=== PATIENT | female | born 1995 | race Caucasian/White ===

== ENCOUNTER 2019-05-18 13:40 | Emergency (ER) | payer OTHER, MEDICAID ==
[2019-05-18 14:19] VITALS: BP 106/67
[2019-05-18 14:49] LABS: Influenza B Molecular POSITIVE (Negative)
--- NOTE | 2019-05-18 15:29 | UC ---
FLU HPI - HPI Summary HPI Summary: 3 DAYS OF COUGH, FATIGUE, ACHINESS AND CHILLS. DENIES ANY DOCUMENTED FEVER. NO NAUSEA, HEADACHE, SORE THROAT OR EAR PAIN. STATES SHE IS ACTUALLY FEELING A LITTLE BIT BETTER TODAY BUT IS MOSTLY CONCERNED ABOUT THE COUGH. 30 WEEKS . NO FLU SHOT. FOLLOWS WITH [facility]. - History of Current Complaint Chief Complaint: UCGeneralIllness Stated Complaint: RESP COMPLAINT Time Seen by Provider: 05/18/19 14:53 Hx Obtained From: Patient, Family/Deputy [employer] Handler - MOM Hx Last Menstrual Period: 02/12/16 Onset/Duration: Gradual Onset, Lasting Days, Still Present Severity Currently: Mild Severity Initially: Mild Pain Intensity: 0 Pain Scale Used: 0-10 Numeric Associated Signs & Symptoms: Positive: Myalgia, Cough - Allergy/Home Medications Allergies/Adverse Reactions: Allergies Allergy/AdvReac Type Severity Reaction Status Date / Time No Known Allergies Allergy Unverified 05/18/19 14:14 Home Medications: Home Medications NK [No Home Medications Reported] 05/18/19 [History Confirmed 05/18/19] PMH/Surg Hx/FS Hx/Imm Hx Previously Healthy: Yes - Surgical History Surgical History: None - Family History Known Family History: Positive: Other - appendicitis Negative: Cardiac Disease, Hypertension, Diabetes - Social History Alcohol Use: None Substance Use Type: None Smoking Status (MU): Never Smoked Tobacco - Immunization History Vaccination Up to Date: Yes Review of Systems All Other Systems Reviewed And Are Negative: Yes Constitutional: Positive: Chills, Fatigue Respiratory: Positive: Cough Cardiovascular: Positive: Negative Gastrointestinal: Positive: Negative Musculoskeletal: Positive: Myalgia Physical Exam Triage Information Reviewed: Yes Appearance: Well-Appearing, No Pain Distress, Well-Nourished Vital Signs: Initial Vital Signs Temp 98.2 F 05/18/19 14:15 Pulse 106 05/18/19 14:15 Resp 16 05/18/19 14:15 BP 106/67 05/18/19 14:15 Pulse Ox 100 05/18/19 14:15 Laboratory Tests 05/18/19 05/18/19 14:42 14:45 Influenza B (Rapid) Positive A Group A Strep Rapid Negative Vital Signs Reviewed: Yes Eyes: Positive: Conjunctiva Clear ENT: Positive: Hearing grossly normal, Pharynx normal, TMs normal Neck: Positive: Supple, Nontender, No Lymphadenopathy Respiratory Exam: Normal Cardiovascular Exam: Normal Abdomen Description: Positive: Soft Musculoskeletal: Positive: No Edema Neurological: Positive: Alert Psychological: Positive: Age Appropriate Behavior Skin: Negative: Rashes Flu Course/Dx - Course Course Of Treatment: SWAB POSITIVE FOR INFLUENZA B. PATIENT IS 28 WEEKS AND HAS A ROUTINE OB FOLLOW-UP APPOINTMENT IN 2 DAYS. ADVISED HER TO KEEP THIS APPOINTMENT. TYLENOL NEEDED FOR DISCOMFORT. REST, HYDRATE. PATIENT DECLINES TAMIFLU TODAY STATING SHE IS ACTUALLY FEELING A LITTLE BETTER. WAS JUST CONCERNED ABOUT THE PERSISTENT COUGH. - Differential Dx/Diagnosis Provider Diagnosis: Influenza B Discharge ED - Sign-Out/Discharge Documenting (check all that apply): Patient Departure All imaging exams completed and their final reports reviewed: No Studies - Discharge Plan Condition: Stable Disposition: HOME Patient Education Materials: Influenza (ED) Forms: *Work Release Referrals: [facility] [Outside] - If Needed Additional Instructions: SWAB POSITIVE FOR INFLUENZA B. TYLENOL NEEDED FOR DISCOMFORT. STAY WELL HYDRATED AND RESTED. SEEK FOLLOW-UP IF YOU ARE NOT IMPROVING EXPECTED. KEEP YOUR OB APPT IN 2 DAYS. CALL THE NUMBER BELOW FOR ASSISTANCE IN ESTABLISHING WITH A PCP An additional resource available to assist in finding the appropriate physician for your health care needs is the [facility] ([facility]). You may contact them by calling [phone]. - Billing Disposition and Condition Condition: STABLE Disposition: Home
== END 2019-05-18 15:30 | disposition home or self-care (01) ==
LOC: UCEAST 13:40
DX: O99.89 Other specified diseases and conditions complicating pregnancy, childbirth and the puerperium (principal); J10.1 Influenza due to other identified influenza virus with other respiratory manifestations; Z3A.28 28 weeks gestation of pregnancy
CPT/HCPCS: 87651; 99211; G0463

== ENCOUNTER 2019-08-04 08:01 | Inpatient (IN) | payer OTHER, MEDICAID ==
[2019-08-04] MEDS ORDERED: Buffered Lidocaine 1% SYRIN* 1 ML/SYRINGE INTRADERM ONE (08:10)
[2019-08-04] MEDS ORDERED: Lactated Ringers 1000 ML Bag* 1,000 ML IV ONE ×2 (08:10→13:33)
[2019-08-04] MEDS ORDERED: Lactated Ringers 1000 ML Bag* 1,000 ML IV SCH ×3 (09:00→16:00)
--- NOTE | 2019-08-04 09:23 | HP ---
General Information - Reason for Visit elective IOL at 39w4d - General Information Maternal Age: 23 Grav: 2 Para: 1 SAB: 0 IEA: 0 Estimated Due Date: 08/07/19 Determined By: Early Ultrasound Gestational Age in Weeks/Days: 39w4d Maternal Blood Type and Rh: O Positive - Results this Serology/RPR Result: Non-Reactive Rubella Result: Immune HBsAg Result: Negative HIV Result: Negative GBS Culture Result: Negative Past Medical History Delivery History: Hx Uncomplicated Vaginal Delivery, See Records Pertinent Past Medical History: Non-Contributory Pertinent Past Surgical History: None Pertinent Family History: Non-Contributory - Antepartal Records Antepartal Records: Reviewed, Uncomplicated - UDS+ for THC Review of Systems Constitutional: Comfortable CV Complaint: No Respiratory: Shortness of Breath: No Gastrointestinal: No Nausea/Vomiting, Normal Bowel Movement Genitourinary: No Dysuria, No Bleeding, No Leaking Fluid Musculoskeletal: No Complaint, No Epigastric Pain Neurological: No Headache, No Visual Changes Movement: Normal Exam Allergies/Adverse Reactions: Allergies No Known Allergies Allergy (Unverified 05/18/19 14:14) T 98.1 P 104 RR 20 BP 124/79 O2 Sat 100% - Measurements Height: 5 ft 4.5 in Weight: 179 lb 0.035 oz Weight in lbs: 179.033308 Body Mass Index (BMI): 30.2 Pre- Weight: 159 lb Weight Gained This : 20.002 lbs and 0.003 ozs - Exam Breast: Breast Exam Deferred CVA: No CVA Tenderness Extremities: No Edema Heart: Normal Rhythm/Heart Sounds HEENT: No Significant Findings Lungs: Clear Bilaterally Rectal: Rectal Exam Deferred Reflexes: DTR 2+ Thyroid: No Thyromegaly - Abdominal Exam Abdomen Exam: Non-Tender, Fundal Height Consistent with Dates - Ultrasound/Biophysical Profile Ultrasound Status: Bedside Exam Ultrasound Findings: Vertex, grossly normal JOSE ANGEL Targeted Exam Findings Estimated Weight: 7#4oz Cervical Exam: 4cm Effacement: 70% Station: -2 Presenting Part: Vertex Membrane Status: Intact Bleeding/Discharge: None EFM Findings - External Monitor Findings Baseline Heart Rate: 135 External Monitor Findings: Accelerations Present, No Pattern of Variable or Late Decelerations, Variability Moderate, Baseline Stable External Monitor Findings Comment: Reactive Contractions: Irregular, Mild, < 45 Seconds Assessment/Plan - Assessment 23 y/o at 39w4d with favorable cervical exam, here for elective IOL RH+ Rubella Immune GBS negative - Plan Plan: Induction Plan Comment: Cervix is 4cm/70%/-2, soft, mid position - favorable for IOL Pitocin, AROM when/if appropriate and safe - Date/Time of Admission Date of Admission: 08/04/19 Time of Admission: 08:00
[2019-08-04 09:56] LABS: Hematocrit 32 % (35-47); Hemoglobin 10.6 g/dL (12.0-16.0); Mean Corpuscular HGB Conc 33 g/dL (31-36); Mean Corpuscular Hemoglobin 24 pg (27-31); Mean Corpuscular Volume 73 fL (80-97); Mean Platelet Volume 8.1 fL (7.4-10.4); Platelet Count 349 10^3/uL (150-450); Red Blood Count 4.41 10^6 /uL (3.70-4.87); Red Cell Distribution Width 15 % (10-15); White Blood Count 11.5 10^3/uL (3.5-10.8)
[2019-08-04] MEDS ORDERED: Oxytocin in LR* 20 UNITS/1,000 ML BAG IVPB SCH (10:00)
[2019-08-04 10:28] LABS: Urine Benzodiazepine Screen None Detected (None Detect); Urine Opiates Screen None Detected (None Detect)
--- NOTE | 2019-08-04 10:44 | PN ---
Progress Note - Progress Note Date of Service: 08/04/19 Note: Pitocin is at 8mU. Contractions are increasing in frequency/intensity. Continue to titrate Pit per protocol. Anticipate vaginal delivery. DO ALEXEY Tellez
[2019-08-04 10:56] LABS: ABS Basophils 0.1 10^3/ul (0-0.2); ABS Eosinophils 0.1 10^3/ul (0-0.6); ABS Lymphocytes 2.6 10^3/ul (1.0-4.8); ABS Monocytes 0.7 10^3/ul (0-0.8); ABS Neutrophils 8.1 10^3/ul (1.5-7.7); Lymphocyte % 22.1 %; Microcytosis 2+
[2019-08-04] MEDS ORDERED: OBEPIDURAL* 250 ML EPIDURAL ONE (12:44)
[2019-08-04] MEDS ORDERED: Lactated Ringers 1000 ML Bag* 500 ML IV PRN ×2 (13:33)
[2019-08-04] MEDS ORDERED: Phenylephrine 40 MCG/ML SYRINGE IV PUSH PRN ×2 (13:33)
[2019-08-04] MEDS ORDERED: Famotidine TAB* 20 MG PO PRN (13:33)
[2019-08-04] MEDS ORDERED: Sodium Citrate/Citric Acid* 15 ML UDC PO PRN (13:33)
[2019-08-04] MEDS ORDERED: OBEPIDURAL* 250 ML EPIDURAL SCH (14:00)
[2019-08-04] MEDS ORDERED: Witch Hazel PAD* JAR ONE (14:31)
[2019-08-04] MEDS ORDERED: Dibucaine 1% 28.35 GM TUBE ONE (14:31)
--- NOTE | 2019-08-04 15:24 | PROCNOTE ---
[facility] OB: Delivery Note - Delivery A Date of : 08/04/19 Time of : 14:12 [place] Weight at : 7 lb 5 oz Score 1 Minute: 9 Score 5 Minutes: 10 Gestational Age in Weeks and Days at Delivery: 39 Weeks and 4 Days Delivery Method: Spontaneous Vaginal Labor: Induced Did Patient attempt ?: N/A, No Previous Amniotic Fluid: Clear Estimated Blood Loss: 250 Anesthesia/Analgesia: CEI for Labor Delivered By: John Thomas JR - Nursery Level of Nursery: Regular/Bedside - Perineum Perineal Injury: Periurethral Laceration Perineal Repair: By Delivering Practioner - Periurethral laceration repaired with 4-0 Vicryl rapide interrupted x 3 - Events Delivery Events of Note: Pitocin During Labor, Pitocin Only After Delivery - Additional Delivery Notes Additional Delivery Notes: Uncomplicated vaginal delivery at term. Delivered through loose body cord. Cord clamped and cut at ~ 5 minutes. Placenta delivered spontaneously and intact with 3VC. Good uterine tone. Periurethral tear extending towards the clitoral pierce repaired with 4-0 Vicryl rapide interrupted sutures x 3. Mother and doing well at time of this note. DO ALEXEY Tellez
[2019-08-04] MEDS ORDERED: Glycerin ADULT SUPP PR PRN (15:25)
[2019-08-04] MEDS ORDERED: Dibucaine 1% 28.35 GM TUBE PR PRN (15:25)
[2019-08-04] MEDS ORDERED: Simethicone TAB* 80 MG TAB.CHEW PO SCH (17:30)
[2019-08-04] MEDS: Ibuprofen TAB* 600 MG PO PRN (18:11)
[2019-08-04] MEDS: Witch Hazel PAD* JAR TOPICAL PRN (18:15)
[2019-08-04] MEDS: Docusate CAP* 100 MG PO SCH (19:52)
[2019-08-05] MEDS: Ibuprofen TAB* 600 MG PO PRN ×4 (00:26→21:58)
[2019-08-05] MEDS: Acetaminophen TAB* 325 MG PO PRN ×4 (05:27→19:58)
[2019-08-05 06:50] LABS: ABS Basophils 0.1 10^3/ul (0-0.2); ABS Eosinophils 0.1 10^3/ul (0-0.6); ABS Lymphocytes 3.9 10^3/ul (1.0-4.8); ABS Monocytes 1.1 10^3/ul (0-0.8); ABS Neutrophils 10.7 10^3/ul (1.5-7.7); Eosinophil % 0.7 %; Hematocrit 28 % (35-47); Hemoglobin 9.3 g/dL (12.0-16.0); Lymphocyte % 24.3 %; Mean Corpuscular HGB Conc 33 g/dL (31-36); Mean Corpuscular Hemoglobin 24 pg (27-31); Mean Corpuscular Volume 74 fL (80-97); Platelet Count 295 10^3/uL (150-450); Red Blood Count 3.83 10^6 /uL (3.70-4.87); Red Cell Distribution Width 15 % (10-15); White Blood Count 15.9 10^3/uL (3.5-10.8)
[2019-08-05] MEDS: Docusate CAP* 100 MG PO SCH ×3 (08:39→21:58)
[2019-08-05] MEDS: Ferrous Gluconate TAB* 324 MG TAB PO SCH ×2 (08:39→21:58)
[2019-08-05] MEDS: Witch Hazel PAD* JAR TOPICAL PRN (08:55)
[2019-08-06] MEDS: Acetaminophen TAB* 325 MG PO PRN (00:01)
[2019-08-06] MEDS: Ibuprofen TAB* 600 MG PO PRN ×2 (03:58→13:21)
[2019-08-06] MEDS: Docusate CAP* 100 MG PO SCH ×2 (08:19→13:21)
[2019-08-06] MEDS: Ferrous Gluconate TAB* 324 MG TAB PO SCH (08:19)
[2019-08-06 08:35] VITALS: BP 119/80
== END 2019-08-06 13:52 | disposition home or self-care (01) | DRG 807 ==
LOC: MCHOBOUT 08:01 → MCHOB 09:05
PROVIDERS: ADMIT Obstetrics & Gynecology; ATTEND Obstetrics & Gynecology
PROC: 10E0XZZ Delivery of Products of Conception, External Approach (ICD-10-PCS; principal; 2019-08-04)
PROC: 3E033VJ Introduction of Other Hormone into Peripheral Vein, Percutaneous Approach (ICD-10-PCS; 2019-08-04)
PROC: 10907ZC Drainage of Amniotic Fluid, Therapeutic from Products of Conception, Via Natural or Artificial Opening (ICD-10-PCS; 2019-08-04)
PROC: 0HQ9XZZ Repair Perineum Skin, External Approach (ICD-10-PCS; 2019-08-04)
DX: O69.81X0 Labor and delivery complicated by cord around neck, without compression, not applicable or unspecified (principal); Z37.0 Single live birth; O71.82 Other specified trauma to perineum and vulva; Z3A.39 39 weeks gestation of pregnancy; O90.81 Anemia of the puerperium; D64.9 Anemia, unspecified
CPT/HCPCS: 36415; 80307; 85025; 86850; 86900; 86901; A9270-GY; G0480

== ENCOUNTER 2023-08-24 18:55 | Inpatient (IN) ==
[2023-08-24] MEDS ORDERED: Buffered Lidocaine 1% SYRIN 1 ml INTRADERM ONE (19:32)
[2023-08-24] MEDS ORDERED: Prochlorperazine 5 mg/ml 2 ml VIAL (10 mg) IV PRN (19:32)
[2023-08-24] MEDS ORDERED: Lidocaine 1% VIAL 10 MG/ML 30 ML VIAL INJ PRN (19:32)
[2023-08-24] MEDS ORDERED: Lactated Ringers 1000 ml BAG 1,000 ML IV SCH ×2 (20:00→22:00)
[2023-08-24] MEDS: Penicillin G Potassium IV 5,000,000 UNITS in NS 0.9% 100 ml BAG 100 ML IVPB ONE (20:08)
[2023-08-24 20:17] LABS: ABS Basophils 0.1 10^3/uL (0.0-0.1); ABS Eosinophils 0.1 10^3/uL (0.0-0.5); ABS Lymphocytes 2.4 10^3/uL (1.0-4.8); ABS Monocytes 0.9 10^3/uL (0.0-0.9); ABS Nucleated RBC 0.01 10^3/ul; Eosinophil % 0.8 %; Hematocrit 36.1 % (35-45); Hemoglobin 12.2 g/dL (11.5-14.3); Lymphocyte % 21.2 %; Mean Corpuscular Hemoglobin 27.6 pg (27-33); Mean Corpuscular Hgb Conc 33.8 g/dL (31-36); Mean Corpuscular Volume 81.8 fL (80-97); Mean Platelet Volume 8.7 fL (7.5-11.2); Nucleated Red Blood Cells % 0.1 %/100WBC (0.0-0.8); Platelet Count 296 10^3/uL (150-450); Red Blood Count 4.41 10^6/uL (3.63-4.92); Red Cell Distribution Width 15.3 % (12-17); White Blood Count 11.5 10^3/uL (3.8-11.8)
[2023-08-24 20:41] LABS: Urine Benzodiazepine Screen None Detected (None Detect); Urine Opiates Screen None Detected (None Detect)
[2023-08-24] MEDS ORDERED: Lidocaine 1.5% EPI 1:200,000 30 ML SDV ONE (20:52)
[2023-08-24] MEDS ORDERED: OBEPIDURAL (200 ML) 200 ML EPIDURAL ONE (21:05)
[2023-08-24] MEDS ORDERED: Lactated Ringers 1000 ml BAG 1,000 ML IV ONE (21:13)
[2023-08-24] MEDS ORDERED: Sodium Citrate/Citric Acid LIQ 15 ML UDC PO PRN (21:13)
[2023-08-24] MEDS ORDERED: Phenylephrine 40 mcg/mL 10mL (400mcg) SYRINGE IV PUSH PRN ×2 (21:13)
[2023-08-24] MEDS: Lactated Ringers 1000 ml BAG 1,000 ML IV ONE (21:52)
[2023-08-24] MEDS: OBEPIDURAL (200 ML) 200 ML EPIDURAL SCH (21:52)
[2023-08-24 23:53] LABS: Urine Appearance Clear; Urine Bilirubin Negative (Negative); Urine Blood 1+ (Negative); Urine Color Light-Yellow; Urine Glucose Negative (Negative); Urine Ketones Trace (Negative); Urine Nitrite Negative (Negative); Urine Protein Negative (Negative); Urine Specific Gravity 1.031 (1.002-1.030); Urine Urobilinogen Negative (Negative); Urine pH 6.5 (5.0-8.0)
[2023-08-24 23:54] LABS: Urine Bacteria Absent /HPF (Absent); Urine Red Blood Cell 3+(>10/hpf) /HPF (0-Trace); Urine Squamous Epithelial Cell Present /HPF (Absent); Urine White Blood Cell Trace(0-5/hpf) /HPF (0-Trace)
[2023-08-25] MEDS ORDERED: Penicillin G Potassium IV 3,000,000 UNITS in NS 0.9% 100 ml BAG 100 ML IVPB SCH
[2023-08-25] MEDS ORDERED: Glycerin ADULT 2.4 gm SUPP PR PRN (00:50)
[2023-08-25] MEDS ORDERED: Lactated Ringers 1000 ml BAG 1,000 ML IV SCH (01:00)
[2023-08-25] MEDS: Witch Hazel PAD JAR TOPICAL PRN (02:00)
[2023-08-25] MEDS: Dibucaine 1% OINT 28.35 GM TUBE PR PRN (21:03)
[2023-08-26 07:48] LABS: ABS Basophils 0.1 10^3/uL (0.0-0.1); ABS Eosinophils 0.2 10^3/uL (0.0-0.5); ABS Lymphocytes 3.4 10^3/uL (1.0-4.8); ABS Monocytes 0.7 10^3/uL (0.0-0.9); ABS Neutrophils 7.7 10^3/uL (1.5-7.6); ABS Nucleated RBC 0.01 10^3/ul; Eosinophil % 1.8 %; Hematocrit 28.4 % (35-45); Hemoglobin 9.6 g/dL (11.5-14.3); Lymphocyte % 28.1 %; Mean Corpuscular Hemoglobin 27.9 pg (27-33); Mean Corpuscular Hgb Conc 33.8 g/dL (31-36); Mean Corpuscular Volume 82.6 fL (80-97); Mean Platelet Volume 8.4 fL (7.5-11.2); Platelet Count 250 10^3/uL (150-450); Red Blood Count 3.44 10^6/uL (3.63-4.92); Red Cell Distribution Width 15.4 % (12-17)
[2023-08-27 07:54] VITALS: BP 123/74
== END 2023-08-27 14:56 | disposition home or self-care (01) | DRG 807 ==
LOC: MCHOBOUT 18:55 → MCHOB 19:32
PROVIDERS: ADMIT Registered Nurse; ATTEND Midwife